=== PATIENT | female | born 1950 | race Caucasian/White ===

== ENCOUNTER 2020-07-04 12:27 | Emergency (ER) | payer OTHER ==
--- NOTE | 2020-07-04 12:34 | PDOC ---
Rapid Medical Evaluation Time Seen by Provider: 07/04/20 12:30 Medical Evaluation: Allergies Allergy/AdvReac Type Severity Reaction Status Date / Time No Known Drug Allergies Allergy Verified 07/04/20 12:30 07/04/20 12:31 70 year old female pmhx depression, hypothyroid, HLD complaining of left arm pain x 5 days PE: TTO to left shoulder FROM and left proximal humerus Plan: Shoulder XR Pt to precede to ED for further eval
[2020-07-04 12:35] VITALS: BP 143/69; PULSE 63; TEMP 98.3; BMI 36.9
--- NOTE | 2020-07-04 13:23 | PDOC ---
History of Present Illness - General Chief Complaint: Pain Stated Complaint: SHOULDER PAIN Time Seen by Provider: 07/04/20 12:30 History Source: Patient Exam Limitations: No Limitations - History of Present Illness Initial Comments: 07/04/20 13:18 Patient is a 70-year-old female with a history of depression, insomnia, high cholesterol and hypothyroidism who presents to the ED with complaint of left upper arm pain and left thumb pain for the last 1 week. The patient states that she took Tylenol earlier today which has helped her pain. She denies any numbness or tingling. She denies any injury or fall. The patient states she was concerned so she came to the ED for evaluation. The patient denies any allergies to medications. Past History - Medical History Allergies/Adverse Reactions: Allergies Allergy/AdvReac Type Severity Reaction Status Date / Time No Known Drug Allergies Allergy Verified 07/04/20 12:30 Home Medications: Ambulatory Orders Albuterol Sulfate Inhaler - [Ventolin HFA Inhaler -] 1 - 2 inh PO QID PRN 06/30/15 Calcium Carbonate/Vitamin D3 [Oyster Shell 500-Vit D3 200 Tb] 1 tab PO DAILY 06/30/15 Escitalopram Oxalate [Lexapro -] 20 mg PO DAILY 06/30/15 Levothyroxine [Synthroid -] 175 mcg PO DAILY 06/30/15 Loratadine 10 mg PO DAILY 06/30/15 Multivit with Calcium,Iron,Min [Tab A Gianfranco] 1 each PO DAILY 06/30/15 Omeprazole [Prilosec (RX)] 20 mg PO DAILY 06/30/15 Simvastatin [Zocor -] 20 mg PO DAILY 06/30/15 Trazodone HCl 100 mg PO DAILY 06/30/15 Ibuprofen [Motrin -] 600 mg PO QID #30 tablet 07/10/15 Cancer: Yes (VOCAL CORD-RAD [place]) COPD: No GI Disorders: Yes (H. PYLORI;H/H) Psychiatric Problems: Yes (depression) Seizures: Yes Thyroid Disease: Yes (THYROID CYSTS) - Psycho-Social/Smoking History Smoking History: Never smoked Have you smoked in the past 12 months: No - Substance Abuse Hx (Audit-C & DAST Scrn) How often the patient has a drink containing alcohol: Never Score: In Men: 4 or > Positive; In Women: 3 or > Positive: 0 Screen Result (Pos requires Nsg. Audit-10AR): Negative In the last yr the pt used illegal drug/Rx for NonMed reason: No Score: Yes response is considered Positive: 0 Screen Result (Positive result requires Nsg. DAST-10): Negative Review of Systems - Review of Systems Comments:: 07/04/20 13:19 - Review of Systems Able to Perform ROS?: Yes Constitutional: No: Fever, Chills, Loss of Appetite, Night Sweats, Weakness HEENTM: No: Eye Pain, Vision changes, Ear Pain, Throat Pain, Throat Swelling, Mouth Pain, Difficulty Swallowing Respiratory: No: Cough, Shortness of Breath, Wheezing, Sputum Production Cardiac (ROS): No: Chest Pain, Chest Tightness, Palpitations, Irregular Heart Beat, Edema ABD/GI: No: Nausea, Vomiting, Abdominal Pain, Diarrhea : No Dysuria, No Hematuria, No Frequency, No Urgency Musculoskeletal: No: Back Pain, Joint Pain, Muscle Weakness, Neck Pain; positive: Left upper arm muscle pain, left thumb pain Integumentary: No: Lesions, Rash Neurological: No: Headache, Numbness, Tingling, Weakness, Speech Difficulties *Physical Exam - Vital Signs Last Vital Signs Temp Pulse Resp BP Pulse Ox 98.3 F 63 18 143/69 100 07/04/20 12:30 07/04/20 12:30 07/04/20 12:30 07/04/20 12:30 07/04/20 12:30 - Physical Exam 07/04/20 13:19 - Physical Exam General Appearance: Nourished, Appropriately Dressed, No Distress HEENT: EOMI, Normal Voice, Hearing Grossly Normal Neck: Supple, No Lymphadenopathy (R), No Lymphadenopathy (L), No Rigidity, No Decreased range of motion Respiratory/Chest: Lungs Clear, Normal Breath Sounds. No Respiratory Distress, No Accessory Muscle Use Cardiovascular: Regular Rhythm, Regular Rate, S1, S2 Musculoskeletal: Normal Inspection. No Decreased Range of Motion; reproducible muscle tenderness to the lateral aspect of the left upper arm. No bony tenderness appreciated. Full range of motion of the left shoulder. Left thumb tenderness only with flexion of the interphalangeal joint. No reproducible bony tenderness to palpation of the left thumb. Brisk capillary refill distally. Sensation intact to the radial, median and ulnar nerve distributions. Extremity: Normal Capillary Refill, Normal Inspection Integumentary: Normal Color, Dry. No Rash Neurologic: music adapter II-XII NML intact, Fully Oriented, Alert, Normal Mood/Affect, Normal Response Medical Decision Making - Medical Decision Making 07/04/20 13:22 Assessment: Patient is a 70-year-old female with left upper arm pain and left thumb pain for the last 1 week which is relieved with Tylenol. Plan: -Left shoulder x-ray ordered which is negative for acute pathology -Patient can continue Tylenol for pain -We will refer to orthopedics for further evaluation and treatment -She understands and agrees with this treatment plan and she is stable for discharge Discharge - Discharge Information Problems reviewed: Yes Clinical Impression/Diagnosis: Left upper arm pain Muscle strain of left upper arm Qualifiers: Encounter type: initial encounter Qualified Code(s): S46.912A - Strain of unspecified muscle, fascia and tendon at shoulder and upper arm level, left arm, initial encounter Condition: Stable Disposition: HOME - Follow up/Referral Referrals: Nando Bennett MD [Primary Care Provider] - Jagdeep Henry DO [Staff Physician] - - Patient Discharge Instructions Patient Printed Discharge Instructions: DI for Muscle Strain Additional Instructions: Apply ice and alternate with heat to help with the arm pain. Continue to take Tylenol as needed for pain. Follow-up with orthopedics for repeat evaluation. Aplique hielo y alterne con calor para ayudar con el dolor del brazo. Contine tomando Tylenol segn sea necesario para el dolor. Seguimiento con ortopedia para evaluacin repetida. - Post Discharge Activity
== END 2020-07-04 13:32 | disposition home or self-care (01) ==
LOC: JERFT 12:27
DX: S46.912A Strain of unspecified muscle, fascia and tendon at shoulder and upper arm level, left arm, initial encounter (principal); M79.622 Pain in left upper arm
CPT/HCPCS: 73030-TC-LT-FY; 99283-25